=== PATIENT | female | born 1955 | race Two or more races ===

== ENCOUNTER → 2016-06-03 | Outpatient (CLI) | payer OTHER ==
--- NOTE | 2016-06-10 18:26 | SLEEP ---
DATE OF STUDY: 06/03/2016 OBJECTIVE: The patient is a 61-year-old female with suspected sleep apnea. Height 5 feet 3 inches, weight 208 pounds, body mass index 36, [place] sleep score 8. INTERPRETATION: Sleep architecture is characterized by a sleep efficiency of 78% across the 7.8 hours of recording time. Stage volumes are appropriate for age. Sleep onset latency is 11 minutes. Respiratory monitoring shows 15 apnea, 65 hypopneas, a total of 80 respiratory events causing an apnea-hypopnea index of 13.1 events per hour of sleep. Minimum oxygen saturation is 80%. The patient is started on treatment during the study and at a CPAP setting of 18 cm, using a ResMed full face mask, medium size. All events were eradicated. No cardiac arrhythmias are seen. Only a minimal number of periodic limb movements of sleep are observed. IMPRESSION: Abnormal polysomnogram showing obstructive sleep apnea and hypopnea treatable with CPAP at 18 cm. RECOMMENDATIONS: 1. The patient should be started on the parameters as described above. 2. She should pursue weight loss and avoid sedatives and alcohol. Thank you for letting us help with the patient's care. PUJA ANTONIO MD DR: JOE/sharmaine JOB#: [id number] / [id number] ALEKS Thomson DO
== END | disposition home or self-care (01) ==
LOC: SLPLAB 18:02
PROVIDERS: ATTEND Family Medicine
DX: G47.33 Obstructive sleep apnea (adult) (pediatric) (principal)
CPT/HCPCS: 95810